=== PATIENT | female | born 1980 | race Caucasian/White ===

== ENCOUNTER 2020-11-28 15:42 | Outpatient (REF) | payer MEDICARE, MEDICAID, SELFPAY | END 2020-11-28 15:43 | disposition home or self-care (01) | LOC: HO.LAB 15:42 | PROVIDERS: Visit Provider Internal Medicine | DX: Z20.822 Contact with and (suspected) exposure to COVID-19 (principal) | CPT/HCPCS: 36415; C9803; U0003 ==

== ENCOUNTER 2023-11-26 13:14 | Outpatient (REF) | payer MEDICARE, MEDICAID, SELFPAY | END 2023-11-26 13:15 | disposition home or self-care (01) | LOC: HO.HAP 13:14 | PROVIDERS: Visit Provider Family Medicine | DX: Z46.1 Encounter for fitting and adjustment of hearing aid (principal) | CPT/HCPCS: V5266 ==